=== PATIENT | male | born 1950 | race Caucasian/White ===

== ENCOUNTER → 2016-06-06 | Day surgery (SDC) | payer OTHER ==
[~2016-06-06] VITALS: Ht 182.9 cm; Wt 83.9 kg
[~2016-06-06] MED LIST: FUROSEMIDE80 M1 PO; LATANOPROST2.5 ML OPH
[2016-06-06 13:02] LABS: ABSOLUTE BASOPHIL COUNT 0 /CUMM (0.0-0.2); ABSOLUTE EOSINOPHIL COUNT 0.6 /CUMM (0.0-0.7); ABSOLUTE GRANULOCYTE CT 5.1 /CUMM (1.4-6.5); ABSOLUTE LYMPH COUNT 1.5 /CUMM (1.2-3.4); ABSOLUTE MONOCYTE COUNT 0.4 /CUMM (0.10-0.60); BASOPHIL % 0.6 % (0.0-2.0); EOSINOPHIL % 7.3 % (0-5); GRANULOCYTE % 67.4 % (42.2-75.2); HEMATOCRIT 41.3 % (42-52); MEAN CORPUSCULAR HGB 28.3 PG (27.0-31.0); MEAN CORPUSCULAR HGB CONC 33.5 G/DL (33.0-37.0); MEAN CORPUSCULAR VOLUME 84.5 FL (80.0-94.0); MEAN PLATELET VOLUME 7.8 FL (7.4-10.4); PLATELET COUNT 288 /CUMM (130-400); RBC DISTRIBUTION WIDTH 14.7 % (11.5-14.5); RED BLOOD CELL CT 4.89 /CUMM (4.70-6.10); WHITE BLOOD CELL COUNT 7.6 /CUMM (4.8-10.8)
--- NOTE | 2016-06-06 16:23 | RADIOLOGY REPORT ---
EXAMINATION: XR PORTABLE CHEST CLINICAL INFORMATION: Status post Port-A-Cath. COMPARISON: Chest radiography 05/09/2016. TECHNIQUE: Portable AP view of the chest was obtained. FINDINGS: Right subclavian Port-A-Cath is noted, with tip terminating over the lower SVC near the caval atrial junction. No pneumothorax. Left upper lung mass is redemonstrated. No mediastinal widening. No acute osseous abnormalities. IMPRESSION: Status post right subclavian Port-A-Cath placement. No pneumothorax. Left lung mass.
--- NOTE | 2016-06-06 17:04 | Operative Report ---
Operative/Inv Procedure Report Surgery Date: 06/06/16 Name of Procedure: Right subclavian Port-A-Cath Pre-Operative Diagnosis: Lung cancer Post-Operative Diagnosis: Same Estimated Blood Loss: scant Surgeon/Front Man: SEKOU TORO MD Anesthesia: local monitored anesthesi Implants: PowerPort Operative/Procedure Note Note: After consent is brought to the operating room laid supine. He was sedated and his right neck and chest prepped and draped. The skin in the upper lateral right chest was infiltrated with local anesthesia. Using ultrasound guidance, subclavian vein was percutaneous the accessed and the wire placed down the level of the right atrium. Incision was then made inferiorly through which the wire was brought out the pocket was made inferior to the incision. The catheter and port were placed in it and the catheter measured under fluoroscopy and trimmed to 22 cm. Under fluoroscopy the dilator was placed down into the superior vena cava. The cath was then placed into the sheath which was then peeled away. Final fluoroscopic images showed the catheter in the SVC/right atrial junction. The port was then flushed with concentrated heparin. Port was anchored to the deep subcutaneous tissues tissues with 0 Vicryl suture. The incision was then closed in layers of 3-0 and 4-0 sutures. Steri-Strips and sterile dressing applied. Sponge are correct
--- NOTE | 2016-06-07 14:13 | RADIOLOGY REPORT ---
EXAMINATION:\H\ \N\FL CHEST CLINICAL INFORMATION: Intraoperative fluoroscopic guidance for right Port-A-Cath placement. COMPARISON: Previous chest x-ray most recent obtained the same day. TECHNIQUE: Fluoroscopic guidance was provided for right subclavian Port-A-Cath placement. 9 images are submitted. FLUOROSCOPY TIME: 38 seconds KVP: 81 MAS: 2.3 FINDINGS: Fluoroscopic guidance was provided for right subclavian Port-A-Cath placement. IMPRESSION: Fluoroscopic guidance for right subclavian Port-A-Cath placement.
== END ==
LOC: STS 01:40
PROVIDERS: Surgery
DX: C34.92 Malignant neoplasm of unspecified part of left bronchus or lung (principal); E78.5 Hyperlipidemia, unspecified; I10 Essential (primary) hypertension; Z85.828 Personal history of other malignant neoplasm of skin
CPT/HCPCS: 36415; 93005; 93010; C1788; J0131; J0690; J1644; J2250

== ENCOUNTER → 2016-08-27 | Day surgery (SDC) | payer OTHER ==
[~2016-08-27] VITALS: Ht 182.9 cm; Wt 82.6 kg
--- NOTE | 2016-08-27 13:41 | Operative Report ---
Operative/Inv Procedure Report Surgery Date: 08/27/16 Name of Procedure: Bronchoscopy with biopsies Pre-Operative Diagnosis: Left upper lobe lung cancer Post-Operative Diagnosis: Same Estimated Blood Loss: none Surgeon/Power Generating Plant Operator: JONNY KHAN,LEXIS Mora JR Anesthesia: general endotracheal tube Operative/Procedure Note Note: After placement of monitoring lines and induction of general anesthesia a fiberoptic bronchoscopy was done through the endotracheal tube. The endobronchial anatomy on the right was normal. On the left side the distal left mainstem bronchus showed no evidence of endobronchial lesion. The left lower lobe bronchus was cleared through the segmental bronchi. The scope was advanced into the left upper lobe bronchus. The proximal left upper lobe bronchial area showed no evidence of mucosal tumor. In the segmental branch to the apex of the left upper lobe the endobronchial tumor could be seen. It was not touched. Biopsies were taken at the origin of the left upper lobe bronchus. If these biopsies are negative then a lobectomy would certainly be possible with negative margins. A second set of biopsies was taken from the distal left main bronchus. If these biopsies are positive then a pneumonectomy would certainly be necessary. There was good hemostasis. The patient tolerated procedure well and was brought to the recovery room awake and extubated in stable condition. CC: HAL KHAN,KAMLESH Jacobo; LISBET KHAN,TEODORA Jackson; CRISETLA KHAN,DANNY Adame
--- NOTE | 2016-08-27 14:45 | RADIOLOGY REPORT ---
EXAMINATION: XR PORTABLE CHEST CLINICAL INFORMATION: Status post bronchoscopy. COMPARISON: 06/06/2016. TECHNIQUE: Portable frontal view of the chest was obtained. FINDINGS: Right sided single lumen implanted port via a subclavian approach is new with its tip at the SVC right atrial junction. There has been a decrease in size of the previously identified left upper upper lobe mass currently measuring 6 cm maximal craniocaudal dimension previously 8.5 cm. There is a 1 cm nodule projecting over the ninth posterior left rib in the costophrenic angle possibly a nipple shadow. Lungs are otherwise clear bilaterally, no effusion, no infiltrate, no evidence of congestion. IMPRESSION: There is a new right-sided port, with decreasing size of the left upper lobe mass, left lower lung field nodule, question nipple shadow.
== END ==
LOC: STS 02:47
DX: C34.12 Malignant neoplasm of upper lobe, left bronchus or lung (principal); G20 Parkinson's disease; I10 Essential (primary) hypertension
CPT/HCPCS: 88305; J2250

== ENCOUNTER 2016-09-25 03:13 | Inpatient (IN) | payer OTHER ==
[~2016-09-25] VITALS: Ht 182.9 cm; Wt 83.0 kg
[~2016-09-25 03:13] MED LIST changes: +CARBIDOPA-LEVO1 EAC7 PO; +METOPROLOL TART25 M1 PO
--- NOTE | 2016-09-25 17:18 | Admission Core Measures ---
Acute Coronary Syndrome Inclusion Criteria ACS Diagnosis No Inpatient Core Measures LDL Reminder: If No, please order W/I first 24hr of stay Congestive Heart Failure Inclusion Criteria CHF Diagnosis No Cerebrovascular accident Inclusion Criteria CVA/TIA Diagnosis No Inpatient Core Measures Bedside Swallow Eval Reminder: If BSE failed, place ST order Antithrombotic Reminder: Order Antithrombotic Medication by end of day 2 Antithrombotic Reminder: Document Reason Antithrombotic Not ordered by end of day 2 AFIB/Flutter Reminder: If Present, add to problem list AFIB/Flutter Reminder: Order Anticoag Medication for pts with AFIB/Flutter Atherosclerosis Reminder: If Present, add to problem list LDL Reminder: If No, please order W/I first 24hr of stay PT Order Reminder: If No, please order Venous thromboembolism Inpatient Core Measures VTE Risk Factors: Age > 40, Cancer/chemo/oth therapy, Surgery [facility] V[facility] prophylaxis d/t No contraindications No VTE Pharm Prophylaxis d/t No contraindications Inclusion Criteria - Per Current guidelines, there needs to be overlap - treatment for the first 5 days of Warfarin therapy. - Parenteral Anticoagulation (IV or SC) needs to be - given along with Warfarin therapy. VTE Diagnosis No VTE Type NONE VTE Confirmed by (Test) NONE Problem List As ranked by this Provider includes Assessment & Plan 1. Mass of left lung HOME MEDS Home Med List Carbidopa/Levodopa (Carbidopa-Levodopa 25-100 Tab) 25 MG-100 MG TABLET 1 TAB PO TID PARKINSONS (Reported) Latanoprost 0.005 % DROPS 1 GTT OPH QPM GLAUCOMA (Reported) Metoprolol Tartrate 25 MG TABLET 0.5 TAB PO BID BP (Reported)
--- NOTE | 2016-09-25 17:42 | RADIOLOGY REPORT ---
EXAMINATION: XR PORTABLE CHEST CLINICAL INFORMATION: Status post left upper lobectomy. COMPARISON: 08/27/2016 TECHNIQUE: Portable frontal view of the chest was obtained. FINDINGS: Single lumen implanted catheter from a right-sided approach is again noted with its tip in the right atrium. There are 2 thoracostomy tubes identified in the left side without evidence of an underlying pneumothorax on this exam labeled 70 degree. There is a small amount of subcutaneous emphysema on the left near the axillary region. There is minimal discoid atelectasis at the bilateral lung bases. Lungs are otherwise clear. Heart size appears unchanged. IMPRESSION: Postoperative changes as noted. No pneumothorax is identified.
--- NOTE | 2016-09-25 18:00 | Admission Certification ---
Admission Certification Certification Statement - As attending physician, I certify that at the time of - admission, based on clinical presentation, severity of - symptoms, need for further diagnostic testing and - therapeutic interventions, and risk of adverse outcomes - without in-hospital treatment, in my clinical assessment, - this patient requires an acute hospital stay for a minimum - of two nights or longer. I have also considered psychsocial - factors such as support system, advanced age, financial - issues, cognitive issues, and failed out-patient treatments, - past re-admission history, safety of patient, and lack of - compliance as applicable. Specific rationale supporting this admission is: Major chest surgery requiring intensive care unit stay.
--- NOTE | 2016-09-25 18:05 | Operative Report ---
Operative/Inv Procedure Report Surgery Date: 09/25/16 Name of Procedure: Left upper lobectomy with mediastinal lymph node dissection Pre-Operative Diagnosis: Left upper lobe lung cancer Post-Operative Diagnosis: Same Estimated Blood Loss: 50ml to 100ml Surgeon/Heel Padder: JONNY KHAN,LEXIS Bach Anesthesia: general endotracheal tube Operative/Procedure Note Note: After placement of monitoring lines and induction of general anesthesia the double-lumen endotracheal tube was appropriately positioned fiberoptic bronchoscopy. The patient was placed in the right lateral decubitus position and his left chest was prepped and draped in a sterile fashion. A standard posterolateral thoracotomy incision was made and the chest was entered through the fifth intercostal space. The patient's chest was very rigid so portion of the sixth rib was resected and this allowed for better exposure. The fissure was essentially complete and the pulmonary artery was identified at the base of the fissure. By dissecting along the pulmonary artery we were able to identify all of the upper lobe branches very easily. There was a significant amount of reactive lymphadenopathy along the apical anterior branch. This branch was resected by placing a stapler across the arteries and the lymph nodes with successful firings. The lingular branches were then resected. Dissection continued allowed identification superior pulmonary vein which was resected with the Endo CAROLINE stapler. There was significant lymphatic attachments around the left upper lobe bronchus and these were divided as part of the specimen. The reticulating TA 55 stapler was then passed across the bronchus and fired. Intraoperative frozen section disclosed no evidence of cancer at the bronchial margin. The bronchial stump was tested under water to 30 mmHg pressure with no evidence of air leak. Lymph nodes removed from level V and level IX. Dissection was done and level VII and level but because of the fibrotic reactive changes from the radiation treatment we did not pursue lymph nodes in those areas for fear of major organ injury. Chest was drained with a straight and angled chest tube. Long-acting rib blocks were placed. The the pulmonary artery sprayed with sealant. There was good hemostasis. The ribs reapproximated pericostal suture and the lung was reinsufflated under direct vision. The incision was then closed anatomically with running Vicryl suture followed by running Vicryl subcuticular suture. The patient tolerated the procedure well and brought to recovery room awake and extubated in stable condition.
--- NOTE | 2016-09-25 18:08 | Cons- CRCU ---
ERIKDOREEN 09/25/16 1806: General Information and HPI Consulting Request Date of Consult: 09/25/16 Requested By: Dr. Hendrix Reason for Consult: ALVIN lobectomy Source of Information: old records Exam Limitations: clinical condition History of Present Illness: Mr. 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 We were asked to see the patient in the PACU after his ALVIN lobectomy w mediastinal node dissection. He will come up to the ICU after recovery. His previous workup and imaging included a chest x-ray dated 04/15/2016 showing a 9 cm left suprahilar mass with fullness in the left AP window. A CT scan of the chest dated genera 04/18/2016 showed a large left upper lobe mass extending from the left apical pleural space to the left suprahilar region. There were lymph nodes present that were 1 cm inside that looked solid and abnormal. His adrenal glands were normal. A PET/CT performed 06/10/2016 showed a large FDG avid mass with an SUV of 19.4 originating in the left lung apex extending to and encasing the left hilum and invading the left upper lobe bronchus. The tumor appeared to invade the mediastinum. He underwent a successful bronchoscopy with biopsies early this afternoon with negative margins and he subsequently underwent a ALVIN lobectomy. Intraoperative frozen section disclosed no evidence of cancer at the bronchial margin. 2 chest tubes were placed and a post-op CXR is pasted below and ruled out a PTX: CXR SERVICE DATE: 09/25/16-1718: Single lumen implanted catheter from a right-sided approach is again noted with its tip in the right atrium. There are 2 thoracostomy tubes identified in the left side without evidence of an underlying pneumothorax on this exam labeled 70 degree. There is a small amount of subcutaneous emphysema on the left near the axillary region. There is minimal discoid atelectasis at the bilateral lung bases. Lungs are otherwise clear. Heart size appears unchanged. At the time of the interview, he offered little complaint except for some pain at the site of the incision. He denies any chest pain, palpitations, lightheadedness or significant dyspnea. No n/v or abdominal pain. Allergies/Medications Allergies: Coded Allergies: cephalexin (? 09/24/16) nut - unspecified (GI UPSET 06/05/16) Home Med List: Carbidopa/Levodopa (Carbidopa-Levodopa 25-100 Tab) 25 MG-100 MG TABLET 1 TAB PO TID PARKINSONS (Reported) Latanoprost 0.005 % DROPS 1 GTT OPH QPM GLAUCOMA (Reported) BOTH EYES Metoprolol Tartrate 25 MG TABLET 0.5 TAB PO BID BP (Reported) Current Medications: Current Medications Sig/Jennifer Start time Last Medication Dose Route Stop Time Status Admin Acetaminophen 1,000 MG Q8P PRN 09/25 1899 UNVr IV Carbidopa/Levodopa 1 TAB TID 09/25 2199 UNVr PO Dextrose/Sodium 1,000 ML .[id number] 09/25 190 UNVr Chloride IV Heparin Sodium 5,000 UNIT Q8 09/26 599 UNVr (Porcine) SC Hydromorphone HCl 50 MG Q24H PRN 09/25 190 UNVr Sodium Chloride 45 ML IV Hydromorphone HCl 50 MG Q24H PRN 09/25 1730 AC Sodium Chloride 45 ML IV Latanoprost 1 GTT AT BEDTIME 09/25 2199 UNVr OPH Metoprolol Tartrate 12.5 MG BID 09/25 2199 UNVr PO Ondansetron HCl 4 MG Q6P PRN 09/25 1900 UNVr IV Pantoprazole Sodium 40 MG DAILY 09/26 1000 UNVr IV Vancomycin HCl 1,000 MG ONCE ONE 09/26 0400 UNir Sodium Chloride 250 ML IV 09/26 0459 Past History Surgical History Surgical History: basal cell ca on the back removed Psychosocial History Smoking Status: Unknown If Ever Smoked Exam & Diagnostic Data Last 24 Hrs of Vital Signs/I&O Current Medications Sig/Jennifer Start time Last Medication Dose Route Stop Time Status Admin Acetaminophen 1,000 MG Q8P PRN 09/25 1900 AC IV Carbidopa/Levodopa 1 TAB TID 09/25 2200 AC PO Dextrose/Sodium 1,000 ML .[id number] 09/25 1900 AC 09/25 Chloride IV 1927 Heparin Sodium 5,000 UNIT Q8 09/26 0600 AC (Porcine) SC Hydromorphone HCl 50 MG Q24H PRN 09/25 1900 CAN Sodium Chloride 45 ML IV Hydromorphone HCl 50 MG Q24H PRN 09/25 1730 AC 09/25 Sodium Chloride 45 ML IV 194 Latanoprost 1 GTT AT BEDTIME 09/25 2199 AC OPH Metoprolol Tartrate 12.5 MG BID 09/25 2199 AC PO Ondansetron HCl 4 MG Q6P PRN 09/25 1900 AC IV Pantoprazole Sodium 40 MG DAILY 09/26 1000 AC IV Vancomycin HCl 1,000 MG ONCE ONE 09/26 0400 AC Sodium Chloride 250 ML IV 09/26 0459 Physical Exam General Appearance: well developed/nourished, no apparent distress, awake, comfortable Head: atraumatic, normal appearance, active bleeding Eyes: Bilateral: PERRL, EOMI. Neck: normal inspection, supple Respiratory: no respiratory distress, decreased breath sounds, Chest wall non tender. Anterior and posterior chest tubes in place and draining blood., Chemotherapy port in the left upper chest wall. Cardiovascular: regular rate/rhythm, 2/6 systolic murmur Gastrointestinal: soft, non-tender, quiet BS Extremities: normal inspection, no edema Last 48 Hrs of Labs/Jesus: na Diagnostic Data CXR Results SERVICE DATE: 09/25/16 EXAM TYPE: RAD - XRY-PORTABLE CHEST XRAY EXAMINATION: XR PORTABLE CHEST CLINICAL INFORMATION: Status post left upper lobectomy. COMPARISON: 08/27/2016 TECHNIQUE: Portable frontal view of the chest was obtained. FINDINGS: Single lumen implanted catheter from a right-sided approach is again noted with its tip in the right atrium. There are 2 thoracostomy tubes identified in the left side without evidence of an underlying pneumothorax on this exam labeled 70 degree. There is a small amount of subcutaneous emphysema on the left near the axillary region. There is minimal discoid atelectasis at the bilateral lung bases. Lungs are otherwise clear. Heart size appears unchanged. IMPRESSION: Postoperative changes as noted. No pneumothorax is identified. Assessment/Plan Impression/Plan: Mr. Corrigan is a 66 year old gentleman with a PMH of basal cell carcinoma to the back, eczema, parkinson's disease and newly diagnosed left upper lobe non- small cell CA who was admitted to [facility] for treatment of a ALVIN non- small cell lung CA. He underwent a successful bronchoscopy with biopsies early this afternoon with negative margins and he subsequently underwent a ALVIN lobectomy. Intraoperative frozen section disclosed no evidence of cancer at the bronchial margin. 2 chest tubes were placed and a post-op CXR ruled out a PTX. Problem List ALVIN non-small cell lung Ca s/p ALVIN lobectomy HTN Parkinsons disease Recommendations: * Continue home meds for HTN, metoprolol 12.5 BID * Continue Carbidopa/Levadopa 25-100 daily for PD * Pain control, diet and dvt ppx per surgery * Chest tubes in place to suction, and management/removal will be dictated by surgery. Follow up CXR in the am. * follow up ALVIN and LN pathology/IHC FULL CODE Heart healthy diet Consult Acknowledgment - Thank you for your consult request. MAGALIE KHAN,Phil SANCHEZ 09/26/16 0854: Assessment/Plan Other Findings/Comments: I have personally seen and examined the patient, and agree with the resident's assessment and plan as detailed above. Briefly, the patient is a 66-year-old male with a past medical history significant for basal cell carcinoma of the back, eczema, Parkinson's disease, and left upper lobe non-small cell lung cancer. The patient underwent a left upper lobectomy with mediastinal lymph node dissection, without significant complications. The plan is to continue post thoracotomy respiratory protocol, continue home medications for hypertension and Parkinson's, continue with pain control, and follow up pathology. CT surgery will follow up with chest tube management. I discussed the plan of care with the housestaff and we'll continue to follow. Consult Acknowledgment - Thank you for your consult request.
[2016-09-25 20:00] VITALS: BP 130/80
--- NOTE | 2016-09-25 20:08 | PN- Thoracic Surgery ---
Subjective Subjective: The patient was seen this evening postoperatively. He complains of some mild incisional soreness for which the pain medicines to help him. He had no other complaints and denies any true chest pain, palpitations, or difficulty breathing. Objective Vital Signs and I&Os Intake & Output 09/25 1600 09/25 0800 09/25 0000 09/24 1600 09/24 0800 09/24 0000 Intake Total Output Total Balance Patient 180 lb Weight Vital signs: Blood pressure 130/80, pulse 79, blood temperature 97.2, O2 saturation 96% on 3 L via nasal cannula Postoperative chest x-ray showing no residual pneumothorax and 2 chest tubes in good position Physical Exam: Gen.: Alert and in no obvious distress Skin: Warm and dry Chest: Equal expansion, 2 chest tubes connected to Pleur-evac and suction with no air leak. Serosanguineous drainage in the collection chamber's. Surgical dressing is blood-tinged but otherwise intact. Cardiac: S1 and S2 regular Pulmonary: Bilateral breath sounds are equal and decreased at bases with transmitted chest tube noises in left chest Extremities: Bilateral lower extremities are warm without calf tenderness or significant edema. Assessment/Plan Assessment/Plan Assessment: 66-year-old male status post left upper lobectomy for cancer. Postoperatively the patient is progressing as expected, his pain is under adequate control, and he is oxygenating adequately on minimal O2 requirements Plan: Continue current pain regiment Postoperative prophylactic antibiotics Clear liquid diet tonight advance to heart healthy diet in the morning Maintain IV fluids Strict I's and O's Chest tubes to Pleur-evac and continuous wall suction Follow-up morning laboratory studies and chest x-ray GI and DVT prophylaxis subcutaneous heparin start tomorrow morning due to bleeding Total respiratory care per thoracotomy protocol Resume home medications Follow-up pulmonary critical care consultation recommendations Core Measures/Miscellaneous Aguirre Catheter Date In: 09/25/16 Still Needed? Yes Venous Thromboembolism VTE Risk Factors: Age > 40, Cancer/chemo/oth therapy, Surgery VTE Contraindications: No Contraindications VTE Diagnosis: No VTE Type: NONE VTE Confirmed by (Test): NONE Beta Yulia Is Beta Yulia a Home Med? Yes If Yes, Was This Ordered Today? Yes Antibiotics Is Patient on Antibiotics? Yes If Yes: prophylaxis
[2016-09-25 22:00] VITALS: BP 131/82
[2016-09-26] VITALS (12 sets, daily range): BP systolic 94–142; BP diastolic 49–88
--- NOTE | 2016-09-26 05:40 | PN- Thoracic Surgery ---
Subjective Subjective: The patient was seen this morning postoperatively day #1. He reports that his pain is under adequate control and he has no other complaints this morning. He denies any true chest pain, palpitations, or difficulty breathing. Objective Vital Signs and I&Os Vital Signs Date Time Temp Pulse Resp B/P B/P Pulse O2 O2 Flow FiO2 Mean Ox Delivery Rate 09/26 0310 96.3 71 16 124/70 09/26 0200 76 18 125/72 09/26 0104 99 Nasal 3.0L Cannula 09/26 0000 96.9 85 16 140/80 07/ 0000 96.9 85 16 140/80 98 Nasal 3.0L Cannula 09/26 0000 98 Nasal 2.0L Cannula 09/25 2216 72 18 135/76 09/25 2200 74 16 131/82 09/26 1999 97.2 78 16 130/80 09/26 1999 97.2 79 14 130/80 96 Nasal 3.0L Cannula 09/26 1999 98 Nasal 3.0L Cannula 09/25 1954 3.0L Intake & Output 09/26 0800 09/26 0000 09/25 1600 09/25 0800 09/25 0000 09/24 1600 Intake Total 295 Output Total 390 Balance -95 Intake, IV 195 Intake, Oral 100 Output, Chest 230 Tube Drainage Output, Urine 160 Patient 180 lb Weight Physical Exam: Gen.: Alert and in no obvious distress Skin: Warm and dry Cardiac: S1-S2 regular Chest: Equal expansion, left chest surgical dressing is slightly blood-tinged but otherwise intact. There are 2 chest tubes connected to the Pleur-evac and wall suction with serosanguineous drainage in the chambers. The anterior chest tube has a very small air leak reproducible with cough. Pulmonary: Bilateral breath sounds are equal and slightly decreased at bases. There are no wheezes, rales, or rhonchi. Extremities: Bilateral lower extremities are warm without calf tenderness. Assessment/Plan Assessment/Plan Assessment: 66-year-old male status post left upper lobectomy for cancer postoperative day #1. The patient is progressing as expected, he is oxygenating adequately with minimal O2 requirements, and his pain is reasonably controlled. Plan: Follow-up morning chest x-ray and labs If there is no pneumothorax will consider removing posterior chest tube today Hep-Lock IV fluids advance diet to a heart healthy diet Continue current pain regiment GI and DVT prophylaxis DC a line but keep Aguirre catheter for strict I's and O's Total respiratory care per postthoracotomy protocol Follow-up pulmonary and critical care consultation recommendations Core Measures/Miscellaneous Aguirre Catheter Date In: 09/25/16 Venous Thromboembolism VTE Risk Factors: Age > 40, Cancer/chemo/oth therapy, Surgery VTE Contraindications: No Contraindications VTE Diagnosis: No VTE Type: NONE VTE Confirmed by (Test): NONE Beta Yulia Is Beta Yulia a Home Med? Yes If Yes, Was This Ordered Today? Yes Antibiotics Is Patient on Antibiotics? No
[2016-09-26 05:52] LABS: ABSOLUTE BASOPHIL COUNT 0 /CUMM (0.0-0.2); ABSOLUTE EOSINOPHIL COUNT 0 /CUMM (0.0-0.7); ABSOLUTE GRANULOCYTE CT 10.8 /CUMM (1.4-6.5); ABSOLUTE LYMPH COUNT 0.3 /CUMM (1.2-3.4); BASOPHIL % 0 % (0.0-2.0); EOSINOPHIL % 0 % (0-5); GRANULOCYTE % 88.9 % (42.2-75.2); HEMATOCRIT 33.1 % (42-52); MEAN CORPUSCULAR HGB 30.9 PG (27.0-31.0); MEAN CORPUSCULAR HGB CONC 33.5 G/DL (33.0-37.0); MEAN CORPUSCULAR VOLUME 92.2 FL (80.0-94.0); MEAN PLATELET VOLUME 8.1 FL (7.4-10.4); PLATELET COUNT 149 /CUMM (130-400); RED BLOOD CELL CT 3.59 /CUMM (4.70-6.10); WHITE BLOOD CELL COUNT 12.2 /CUMM (4.8-10.8)
--- NOTE | 2016-09-26 07:21 | PN- Resident CRCU ---
Subjective HPI/CRCU Issues: Patient seen and examined. He is seen sitting upright in bed resting comfortably. He appears to be in no acute distress. At his bedside are two family members. He reports some moderate/severe chest pain/discomfort on the back left chest wall where the procedure took place yesterday. He also admits to chronic low back pain that is now worse. He otherwise feels well and denies any new subjective complaints. Additionally he denies any fever, chills, palpitations, shortness of breath, nausea, vomitng. Objective Vital Signs & I&O Last 8 Hrs of Vitals and I&O: Intake & Output 09/26 1600 Intake Total 1420 Output Total 60 Balance 1360 Intake, IV 750 Intake, Oral 670 Output, Chest 20 Tube Drainage Output, Urine 40 Exam General Appearance: well developed/nourished, no apparent distress, alert, awake , comfortable Other Physical Findings: General-well developed, well nourished man in no acute distress Neck-Supple, no JVD HEENT-NCAT, PERRL, EOMI, anicteric sclera Cardio/Chest-S1, S2 w/o m/g/r; RRR, left posterior chest wall with recent thoracotomy incision with overlying sterile surgical dressing and mild amount of dry blood, chest tube in place draining scant amount of serosanginous fluid without any surround erythema/drainage Lung-CTA bilaterally Abdomen-Soft, nontender, nondistended, bowel sounds intact Neuro-Awake and alert, CN II-XII grossly intact Ext-normal pulses, no cyanosis/clubbing/edema Current Medications: Current Medications Sig/Jennifer Start time Last Medication Dose Route Stop Time Status Admin Acetaminophen 1,000 MG Q8P PRN 09/25 1900 AC IV Albuterol Sulfate 3 ML Q4 09/25 2200 AC 09/26 INH 1656 Carbidopa/Levodopa 1 TAB TID 09/25 2200 AC 09/26 PO 1114 Dextrose/Sodium 1,000 ML .[id number] 09/25 1900 DC 09/25 Chloride IV 1927 Heparin Sodium 5,000 UNIT Q8 09/26 0600 AC 09/26 (Porcine) SC 1317 Hydromorphone HCl 50 MG Q24H PRN 09/25 1900 CAN Sodium Chloride 45 ML IV Hydromorphone HCl 50 MG Q24H PRN 09/25 1730 AC 09/25 Sodium Chloride 45 ML IV 1949 Latanoprost 1 GTT AT BEDTIME 09/25 2200 AC 09/25 OPH 2216 Metoprolol Tartrate 12.5 MG BID 09/25 2200 AC 09/25 PO 2216 Ondansetron HCl 4 MG Q6P PRN 09/25 1900 AC 09/26 IV 1317 Pantoprazole Sodium 40 MG DAILY 09/26 1000 AC 09/26 IV 1028 Sodium Chloride 500 ML BOLUS ONE 09/26 1315 DC 09/26 IV 09/26 1414 1315 Vancomycin HCl 1,000 MG ONCE ONE 09/26 0400 DC 09/26 Sodium Chloride 250 ML IV 09/26 0459 0429 Impression/Plan Impression/Problem List Impression: 66 year old man with significant past medical history of NSCLC, basal cell carcinoma, parkinson's disease seen admitted for left upper lobectomy. #Non-small cell lung Cancer s/p ALVIN Lobectomy #Parkinsons Disease #Hypertension Patient with history of newly diagnosed NSCLC admitted for ALVIN lobectomy. Patient underwent successful bronchoscopy with biopsies and negative margins with subsequent left upper lobectomy. Patient was transferred from the PACU to the ICU for closer observation and further management after the procedure. -ICU -Post-thoracotomy care per protocol -Chest tube care per CT surgery -Sinemet 25/10 1 TAB PO TID -Metoprolol 12.5mg PO BID -Zofran 4mg IV Q6H PRN Nausea -Continue Eye drops -Protonix 40mg IV Daily -Pain control / Diet / DVT per surgery -Follow up intraoperative pathologies Problem List: 1. Mass of left lung Pain Ratin Tomorrow's Labs & Rationales: Per surgery Plan DVT/Prophylaxis: mechanical
--- NOTE | 2016-09-26 08:13 | RADIOLOGY REPORT ---
EXAMINATION: XR PORTABLE CHEST CLINICAL INFORMATION: Follow-up status post left upper lobectomy. COMPARISON: 09/25/2016 TECHNIQUE: Portable frontal view of the chest was obtained. FINDINGS: Medication port of the right chest wall with central catheter terminating at the cavoatrial junction. Patient is status post recent left upper lobectomy. A left thoracostomy tube remains in similar position, its tip located in the upper third of the left hemithorax. Also, there is a thoracostomy tube at the base of the hemithorax. No evidence of pulmonary edema, pneumothorax or pleural effusion. Again noted is soft tissue emphysema in the axillary region. Linear opacity of discoid atelectasis in the right lower lung zone. Cardiac silhouette is normal in size. Thoracotomy defect of posterior sixth and seventh ribs. IMPRESSION: No evidence of pneumothorax after recent left upper lobectomy. Thoracostomy tubes remain in similar position compared to the prior exam.
[2016-09-27] VITALS (9 sets, daily range): BP systolic 96–126; BP diastolic 50–80
--- NOTE | 2016-09-27 05:48 | PN- Thoracic Surgery ---
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 pain at chest tube site posterior chest tube pulled yesterday anterior placed to water seal Objective Vital Signs and I&Os Vital Signs Date Time Temp Pulse Resp B/P B/P Pulse O2 O2 Flow FiO2 Mean Ox Delivery Rate 09/27 0400 95 Room Air / 0200 97.3 87 10 97/50 07/08 0124 98 Room Air 07/ 0000 95 Room Air 07/08 0000 97.3 86 12 110/70 95 Room Air 07/ 2216 98.9 84 22 98/74 07/ 2200 99.2 84 22 107/64 07 2038 99 Room Air 07/ 2000 96 07/07 1800 98.9 86 20 108/64 07/07 1600 98.0 81 24 128/88 97 Room Air 07/ 1600 96 07/07 1400 76 16 94/49 07/07 1200 98.2 74 16 104/62 07/07 1200 98 Room Air 07/07 1114 68 92/54 07/07 1000 65 12 96/60 07/07 0844 97 Room Air 07/07 0800 98.9 82 20 100/70 07/07 0800 98.9 82 20 100/70 96 Room Air 07/07 0800 98 Room Air 07/07 0600 75 18 101/60 Intake & Output 07/08 0800 07/08 0000 07/07 1600 07/07 0800 07/07 0000 /06 1600 Intake Total 560 1420 802 295 Output Total 700 60 447 390 Balance -140 1360 355 -95 Intake, IV 240 750 752 195 Intake, Oral 320 670 50 100 Output, Chest 20 97 230 Tube Drainage Output, Urine 700 40 350 160 Patient 184 lb Weight Weight Bed scale Measurement Method Physical Exam: cv: rrr lungs: clear abd: soft, +bs ext: warm, cms intact chest tube: questionable small air leak snaguinous drainage in pleur evac Assessment/Plan Assessment/Plan stable plan cont current plan f/u am labs and cxr Core Measures/Miscellaneous Aguirre Catheter Date In: 09/25/16 Venous Thromboembolism VTE Risk Factors: Age > 40, Cancer/chemo/oth therapy, Surgery VTE Contraindications: No Contraindications VTE Diagnosis: No VTE Type: NONE VTE Confirmed by (Test): NONE Beta Yulia Is Beta Yulia a Home Med? Yes If Yes, Was This Ordered Today? Yes Antibiotics Is Patient on Antibiotics? No
--- NOTE | 2016-09-27 08:08 | RADIOLOGY REPORT ---
EXAMINATION: XR PORTABLE CHEST CLINICAL INFORMATION: Evaluate for pneumothorax. Patient on waterseal. COMPARISON: Previous chest x-ray most recent from yesterday TECHNIQUE: Portable frontal view of the chest was obtained. FINDINGS: The cardiac and mediastinal contours are stable. Left chest tube is unchanged in position. There is no pneumothorax. The lungs are clear. There is left lateral pleural thickening. There is no pleural effusion. There is a right sided port with tip projecting over the SVC. There is a small amount of left chest wall subcutaneous emphysema. This is similar to yesterday's exam. IMPRESSION: No pneumothorax.
[2016-09-27 08:19] LABS: ABSOLUTE BASOPHIL COUNT 0 /CUMM (0.0-0.2); ABSOLUTE EOSINOPHIL COUNT 0 /CUMM (0.0-0.7); ABSOLUTE LYMPH COUNT 0.5 /CUMM (1.2-3.4); ABSOLUTE MONOCYTE COUNT 0.7 /CUMM (0.10-0.60); BASOPHIL % 0 % (0.0-2.0); EOSINOPHIL % 0.2 % (0-5); GRANULOCYTE % 86.2 % (42.2-75.2); HEMATOCRIT 30.7 % (42-52); MEAN CORPUSCULAR HGB 31.2 PG (27.0-31.0); MEAN CORPUSCULAR HGB CONC 33.2 G/DL (33.0-37.0); MEAN CORPUSCULAR VOLUME 93.9 FL (80.0-94.0); MEAN PLATELET VOLUME 8.1 FL (7.4-10.4); RED BLOOD CELL CT 3.27 /CUMM (4.70-6.10); WHITE BLOOD CELL COUNT 9.3 /CUMM (4.8-10.8)
[2016-09-27 08:57] LABS: PLATELET COUNT 118 /CUMM (130-400)
--- NOTE | 2016-09-27 10:04 | PN- CRCU ---
Subjective HPI/Critical Care Issues: The patient is awake and alert. He reports feeling well and he denies any complaints. There were no overnight events. Objective Current Medications: Current Medications Sig/Jennifer Start time Last Medication Dose Route Stop Time Status Admin Acetaminophen 1,000 MG Q8P PRN 09/25 1900 AC IV Albuterol Sulfate 3 ML Q4 09/25 2200 AC 09/27 INH 0602 Carbidopa/Levodopa 1 TAB TID 09/25 2200 AC 09/26 PO 2223 Docusate Sodium 100 MG BID 09/27 1000 AC PO Heparin Sodium 5,000 UNIT Q8 09/26 0600 AC 09/26 (Porcine) SC 2200 Hydromorphone HCl 50 MG Q24H PRN 09/25 1730 AC 09/25 Sodium Chloride 45 ML IV 1949 Latanoprost 1 GTT AT BEDTIME 09/25 220 AC 09/26 OPH 2222 Metoprolol Tartrate 12.5 MG BID 09/25 2200 AC 09/25 PO 2216 Ondansetron HCl 4 MG Q6P PRN 09/25 1900 AC 09/26 IV 1317 Pantoprazole Sodium 40 MG DAILY 09/26 1000 AC 09/26 IV 1028 Polyethylene Glycol 17 GM DAILY PRN 09/27 0830 AC PO Sodium Chloride 500 ML BOLUS ONE 09/26 1315 DC 09/26 IV 09/26 1414 1315 Vital Signs & I&O Last 24 Hrs of Vitals and I&O: Vital Signs Date Time Temp Pulse Resp B/P B/P Pulse O2 O2 Flow FiO2 Mean Ox Delivery Rate 09/28 799 98.8 84 18 120/70 /08 0600 93 14 114/69 07/08 0400 95 Room Air 07/08 0200 97.3 87 10 97/50 07/08 0124 98 Room Air 07/08 0000 95 Room Air /08 0000 97.3 86 12 110/70 95 Room Air /07 2216 98.9 84 22 98/74 07/07 2200 99.2 84 22 107/64 07/07 2038 99 Room Air 07/07 2000 96 07/07 1800 98.9 86 20 108/64 07/07 1600 98.0 81 24 128/88 97 Room Air 07/07 1600 96 /07 1400 76 16 94/49 07/07 1200 98.2 74 16 104/62 07/07 1200 98 Room Air 07/07 1114 68 92/54 09/26 1000 65 12 96/60 Intake & Output 09/27 1600 09/27 0800 09/27 0000 Intake Total 100 560 Output Total 500 700 Balance -400 -140 Intake, IV 240 Intake, Oral 100 320 Output, Urine 500 700 Patient 183 lb Weight Exam General Appearance: no apparent distress, alert, awake, comfortable Other Physical Findings: Neck-Supple, no JVD HEENT-NCAT, PERRL, EOMI, anicteric sclera Cardio/Chest-S1, S2 w/o m/g/r; RRR, left posterior chest wall with recent thoracotomy incision with overlying sterile surgical dressing and mild amount of dry blood, chest tube in place draining scant amount of serosanginous fluid without any surround erythema/drainage Lung-CTA bilaterally Abdomen-Soft, nontender, nondistended, bowel sounds intact Neuro-Awake and alert, CN II-XII grossly intact Ext-normal pulses, no cyanosis/clubbing/edema Results Last 24 Hrs of Lab Results: Laboratory Tests 09/27/16 0645: Anion Gap 10, Estimated GFR > 60, Glucose 86, Calcium 8.1 L, Phosphorus 2.4 L, Magnesium 1.9, Total Bilirubin 1.1, AST 38, ALT 15 L, Albumin 3.6, CBC w Diff NO MAN DIFF REQ, RBC 3.27 L, MCV 93.9, MCH 31.2 H, RDW 14.0, MPV 8.1, Gran % 86.2 H, Lymphocytes % 5.6 L, Monocytes % 8.0, Eosinophils % 0.2, Basophils % 0 L, Absolute Granulocytes 8.0 H, Absolute Lymphocytes 0.5 L, Absolute Monocytes 0.7 H, Absolute Eosinophils 0, Absolute Basophils 0, PUBS MCHC 33.2 Impression/Plan Impression/Plan Impression/Plan: The patient has a history of newly diagnosed NSCLC admitted for ALVIN lobectomy. Patient underwent successful bronchoscopy with biopsies and negative margins with subsequent left upper lobectomy. Recommendations: * Chest tube management as per CT surgery. * Continue postthoracotomy care as per protocol. * Continue nebs/TRC. * Out of bed to chair. Increase activity. * Physical therapy evaluation. * Continue Sinemet for parkinsonism. * Continue metoprolol. * Continue with pain control. * Follow-up pathology. * DVT prophylaxis at all times. * Continue all supportive care.
--- NOTE | 2016-09-27 12:47 | PN- Thoracic Surgery ---
Subjective Subjective: Left chest tube removed. CXR reviewed, no PTX. approx 10cc out since 7am. DW Dr. Hendrix, no AL. Pt tolerated well. Occlusive dressing immediately applied. Thoracotomy dressing changed- steris stained with old blood, otherwise intact. Repeat CXR in 3hrs. Objective Vital Signs and I&Os Vital Signs Date Time Temp Pulse Resp B/P B/P Pulse O2 O2 Flow FiO2 Mean Ox Delivery Rate 09/27 1048 103 122/74 07/08 0800 98.8 84 18 120/70 07/08 0800 98.8 88 18 120/70 98 Room Air 07/08 0800 98 Room Air 07/08 0600 93 14 114/69 07/08 0400 95 Room Air 07/08 0200 97.3 87 10 97/50 07/08 0124 98 Room Air 07/08 0000 95 Room Air 07/08 0000 97.3 86 12 110/70 95 Room Air 07/07 2216 98.9 84 22 98/74 07/07 2200 99.2 84 22 107/64 /07 2038 99 Room Air / 2000 96 /07 1800 98.9 86 20 108/64 07/07 1600 98.0 81 24 128/88 97 Room Air /07 1600 96 /07 1400 76 16 94/49 Intake & Output 09/27 1600 /08 0800 /08 0000 /07 1600 / 0800 / 0000 Intake Total 110 289 4909 802 295 Output Total 500 700 60 447 390 Balance -400 -140 1360 355 -95 Intake, IV 240 750 752 195 Intake, Oral 100 320 670 50 100 Output, Chest 20 97 230 Tube Drainage Output, Urine 500 700 40 350 160 Patient 183 lb 184 lb Weight Weight Bed scale Measurement Method Assessment/Plan Assessment/Plan See Subjective Core Measures/Miscellaneous Aguirre Catheter Date In: 09/25/16 Venous Thromboembolism VTE Risk Factors: Age > 40, Cancer/chemo/oth therapy, Surgery VTE Contraindications: No Contraindications VTE Diagnosis: No VTE Type: NONE VTE Confirmed by (Test): NONE Beta Yulia Is Beta Yulia a Home Med? Yes If Yes, Was This Ordered Today? Yes Antibiotics Is Patient on Antibiotics? No
--- NOTE | 2016-09-27 14:54 | PN- CRCU ---
Subjective HPI/Critical Care Issues: I saw the pt at bedside today. pateint is comfortable at rest, afebrile, not dyspnec, tachypneic. having oral feed today Objective Current Medications: Current Medications Sig/Jennifer Start time Last Medication Dose Route Stop Time Status Admin Acetaminophen 1,000 MG Q8P PRN 09/25 1900 DC IV Albuterol Sulfate 3 ML Q4 09/25 2200 AC 09/27 INH 1406 Carbidopa/Levodopa 1 TAB TID 09/25 2200 AC 09/27 PO 1048 Docusate Sodium 100 MG BID 09/27 1000 AC 09/27 PO 1048 Heparin Sodium 5,000 UNIT Q8 09/26 0600 AC 09/26 (Porcine) SC 2200 Hydromorphone HCl 50 MG Q24H PRN 09/25 1730 DC 09/25 Sodium Chloride 45 ML IV 1949 Latanoprost 1 GTT AT BEDTIME 09/25 2200 AC 09/26 OPH 2222 Magnesium Oxide 400 MG ONE ONE 09/27 1015 DC 09/27 PO 09/27 1016 1048 Metoprolol Tartrate 12.5 MG BID 09/25 2200 AC 09/27 PO 1048 Ondansetron HCl 4 MG Q6P PRN 09/25 1900 AC 09/26 IV 1317 Oxycodone/ 1 TAB Q4P PRN 09/27 1315 AC Acetaminophen PO Oxycodone/ 2 TAB Q4P PRN 09/27 1315 AC Acetaminophen PO Pantoprazole Sodium 40 MG DAILY 09/26 1000 AC 09/27 IV 1048 Polyethylene Glycol 17 GM DAILY PRN 09/27 0830 AC PO Potassium Chloride 40 MEQ ONCE ONE 09/27 1015 DC 09/27 PO 09/27 1016 1046 Vital Signs & I&O Last 24 Hrs of Vitals and I&O: Vital Signs Date Time Temp Pulse Resp B/P B/P Pulse O2 O2 Flow FiO2 Mean Ox Delivery Rate 09/27 1327 82 20 114/63 07/08 1200 98.8 78 18 96/58 07/ 1200 98 Room Air / 1048 103 122/74 / 0800 98.8 84 18 120/70 07/08 0800 98.8 88 18 120/70 98 Room Air / 0800 98 Room Air / 0600 93 14 114/69 07/08 0400 95 Room Air / 0200 97.3 87 10 97/50 07/08 0124 98 Room Air 07/ 0000 95 Room Air 07/ 0000 97.3 86 12 110/70 95 Room Air 09/26 2216 98.9 84 22 98/74 07/07 2200 99.2 84 22 107/64 07/07 2038 99 Room Air / 2000 96 07/07 1800 98.9 86 20 108/64 07/07 1600 98.0 81 24 128/88 97 Room Air 09/26 1600 96 Intake & Output 09/27 1600 07/08 0800 07/ 0000 Intake Total 950 100 560 Output Total 1660 500 700 Balance -710 -400 -140 Intake, IV 200 240 Intake, Oral 750 100 320 Output, Chest 10 Tube Drainage Output, Urine 1650 500 700 Patient 183 lb Weight Exam General Appearance: well developed/nourished, no apparent distress, alert, awake Head: normal appearance Neck: normal inspection, supple, full range of motion Respiratory: lungs clear Cardiovascular: regular rate/rhythm Abdomen: normal bowel sounds, soft Extremities: normal inspection, normal capillary refill Skin: intact, normal color Results Last 24 Hrs of Lab Results: Laboratory Tests 09/27/16 0645: Anion Gap 10, Estimated GFR > 60, Glucose 86, Calcium 8.1 L, Phosphorus 2.4 L, Magnesium 1.9, Total Bilirubin 1.1, AST 38, ALT 15 L, Albumin 3.6, CBC w Diff NO MAN DIFF REQ, RBC 3.27 L, MCV 93.9, MCH 31.2 H, RDW 14.0, MPV 8.1, Gran % 86.2 H, Lymphocytes % 5.6 L, Monocytes % 8.0, Eosinophils % 0.2, Basophils % 0 L, Absolute Granulocytes 8.0 H, Absolute Lymphocytes 0.5 L, Absolute Monocytes 0.7 H, Absolute Eosinophils 0, Absolute Basophils 0, PUBS MCHC 33.2 Diagnostic Data CXR Findings: 09/27/16 the cardiac and mediastinal contours are stable. Left chest tube is unchanged in position. There is no pneumothorax. The lungs are clear. There is left lateral pleural thickening. There is no pleural effusion. There is a right sided port with tip projecting over the SVC. There is a small amount of left chest wall subcutaneous emphysema. This is similar to yesterday's exam. Impression/Plan Impression/Plan Impression/Plan: Mr. Corrigan is a 66 year old gentleman with a PMH of basal cell carcinoma to the back, eczema, parkinson's disease and newly diagnosed left upper lobe non- small cell CA,underwent a ALVIN lobectomy.post operative day 1 Plan: continue pain mgt continue antihypertensives dvt prophylaxis continue sinemet Code Status: Full Code
--- NOTE | 2016-09-27 16:55 | RADIOLOGY REPORT ---
EXAMINATION: XR PORTABLE CHEST CLINICAL INFORMATION: Pneumothorax COMPARISON: 09/27/2016. TECHNIQUE: Portable frontal view of the chest was obtained. FINDINGS: Right-sided Port-A-Cath remains in place. No pneumothorax is measurable. Volume loss left hemithorax again noted. Biapical pleural scarring or thickening. Heart and mediastinum remains within normal limits. IMPRESSION: No pneumothorax.
[2016-09-28] VITALS: BP 110/50
[2016-09-28 02:25] VITALS: BP 120/78
--- NOTE | 2016-09-28 07:54 | PN- Thoracic Surgery ---
Subjective Subjective: CHEST TUBE REMOVED YESTERDAY TRANSFERRED OUT OF ICU CONFUSED LAST NIGHT MENTATION IMPROVED THIS AM AWAKE ALERT NO PAIN COMPLAINTS NOW Objective Vital Signs and I&Os Vital Signs Date Time Temp Pulse Resp B/P B/P Pulse O2 O2 Flow FiO2 Mean Ox Delivery Rate 09/28 0225 98.3 68 16 120/78 98 07/09 0000 Room Air 07/08 2220 120/80 07/08 2216 98.6 84 16 120/80 95 Room Air 07/08 1817 100 Room Air 07/08 1740 98.0 82 18 118/70 100 Room Air 07/08 1600 98.4 84 20 126/74 98 Room Air 07/08 1600 98 Room Air 07/08 1539 98 Room Air Room Air 07/08 1327 82 20 114/63 07/08 1200 98.8 78 18 96/58 07/08 1200 98 Room Air 07/08 1048 103 122/74 07/08 0800 98.8 84 18 120/70 07/08 0800 98.8 88 18 120/70 98 Room Air 07/08 0800 98 Room Air Intake & Output / 0800 07/09 0000 07/08 1600 07/08 0800 07/08 0000 /07 1600 Intake Total 100 490 950 030 744 1128 Output Total 700 1660 500 700 60 Balance 100 -210 -710 -400 -140 1360 Intake, IV 100 200 240 750 Intake, Oral 490 750 100 320 670 Output, Chest 10 20 Tube Drainage Output, Urine 700 1650 500 700 40 Patient 183 lb Weight Physical Exam: CV: RRR LUNGS: CLEAR ABD: SOFT +BS EXT: WARM DISTAL CMS INTACT Assessment/Plan Assessment/Plan OOB TODAY LIMIT NARCS PLAN FOR HOME D/C IN AM Core Measures/Miscellaneous Aguirre Catheter Date In: 09/25/16 Venous Thromboembolism VTE Risk Factors: Age > 40, Cancer/chemo/oth therapy, Surgery VTE Contraindications: No Contraindications VTE Diagnosis: No VTE Type: NONE VTE Confirmed by (Test): NONE Beta Yulia Is Beta Yulia a Home Med? Yes If Yes, Was This Ordered Today? Yes Antibiotics Is Patient on Antibiotics? No
[2016-09-28 08:00] VITALS: BP 138/78
[2016-09-28 11:39] VITALS: BP 148/80
[2016-09-28 14:14] VITALS: BP 128/80
[2016-09-28 22:42] VITALS: BP 136/86
[2016-09-29 05:45] VITALS: BP 132/82
--- NOTE | 2016-09-29 09:06 | PN- Thoracic Surgery ---
Subjective Subjective: Feeling well. Denies SOB, CP. c/o difficulty swallowing since OR, "food gets stuck", Pain worse w movement, but lessened w pain meds. +OOB w PT. + spontaneous voids. No BM, asking for meds. Objective Vital Signs and I&Os Vital Signs Date Time Temp Pulse Resp B/P B/P Pulse O2 O2 Flow FiO2 Mean Ox Delivery Rate 09/30 0742 Room Air Room Air 09/29 0545 98.1 71 16 132/82 97 09/28 2242 98.4 73 20 136/86 93 Room Air 09/28 2218 136/86 09/28 1600 Room Air 09/28 1414 98.0 71 20 128/80 96 Room Air 09/28 1236 98 Room Air Room Air 09/28 1139 98.6 84 18 148/80 94 Room Air Intake & Output 09/29 1600 09/29 0800 09/29 0000 09/28 1600 09/28 0800 07/ 0000 Intake Total 10 620 600 100 490 Output Total 600 700 Balance 10 620 0 100 -210 Intake, IV 10 100 Intake, Oral 620 600 490 Output, Urine 600 700 Physical Exam: Intake & Output 09/29 1600 09/29 0800 07/10 0000 / 1600 09/28 0800 07/ 0000 Intake Total 10 620 600 100 490 Output Total 600 700 Balance 10 620 0 100 -210 Intake, IV 10 100 Intake, Oral 620 600 490 Output, Urine 600 700 Physical Exam: GEN: NAD CARD: s1s2 RRR PULM: decreased L base, otherwise clear. INCISION: dressing w dried serosang, CT sites clean and dry without active drainage, throacotomy w serous drainage on dressing, steristrips stained, incision cdi. incisions redressed EXT: calves soft nt bl Current Medications: Current Medications Sig/Jennifer Start time Last Medication Dose Route Stop Time Status Admin Acetaminophen 1,000 MG Q6P PRN 09/28 0430 DC 09/28 N/A 1 UNIT IV 2240 Albuterol Sulfate 3 ML Q4P PRN 09/29 0845 AC INH Albuterol Sulfate 3 ML EVERY 4 HRS/AWAKE 09/28 1999 DC 09/28 INH 1233 Bisacodyl 10 MG ONCE ONE 09/30 0715 DC IL 09/29 0816 Carbidopa/Levodopa 1 TAB TID 09/25 220 AC 09/28 PO 2217 Docusate Sodium 100 MG BID 09/27 1000 AC 09/28 PO 2218 Heparin Sodium 5,000 UNIT Q8 09/26 0600 AC 09/29 (Porcine) SC 0524 Latanoprost 1 GTT AT BEDTIME 09/25 2200 AC 09/28 OPH 2218 Metoprolol Tartrate 12.5 MG BID 09/25 2200 AC 09/28 PO 2218 Ondansetron HCl 4 MG .STK-MED ONE 09/28 1542 DC IM 09/28 1543 Ondansetron HCl 4 MG Q6P PRN 09/25 1900 AC 09/28 IV 1544 Oxycodone HCl 5 MG Q4 HRS NEEDED PRN 09/28 0430 DC 09/29 PO 0524 Oxycodone/ 2 TAB Q4P PRN 09/29 0815 AC Acetaminophen PO Oxycodone/ 1 TAB Q4P PRN 09/29 0815 AC Acetaminophen PO Pantoprazole Sodium 40 MG DAILY 09/26 1000 AC 09/28 IV 1134 Polyethylene Glycol 17 GM DAILY PRN 09/27 0830 AC PO Assessment/Plan Assessment/Plan A: POD4 sp L thoracotomy, L upper lobectomy, CT out over weekend, on RA, with difficulty swallowing likely related to intubation, awaiting BM, stable. P: PT rec. STR, DC planning swallow eval dulcolax supp cont diet, po pain meds will dw attending Core Measures/Miscellaneous Aguirre Catheter Date In: 09/25/16 Venous Thromboembolism VTE Risk Factors: Age > 40, Cancer/chemo/oth therapy, Surgery VTE Contraindications: No Contraindications VTE Diagnosis: No VTE Type: NONE VTE Confirmed by (Test): NONE Beta Yulia Is Beta Yulia a Home Med? Yes If Yes, Was This Ordered Today? Yes Antibiotics Is Patient on Antibiotics? No
[2016-09-29] MEDS ORDERED: PERCOCET 5-3251 EACH PO (09:48)
[2016-09-29] MEDS ORDERED: DOCUSATE SODIU100 M3 PO (09:48)
[2016-09-29] MEDS ORDERED: MIRALAX119 GM PO (09:48)
--- NOTE | 2016-09-29 09:53 | Patient Discharge Instructions ---
Discharge Instructions General Discharge Information You were seen/treated for: Left upper lobe lung cancer You had these procedures: Left upper lobectomy with mediastinal lymph node dissection Watch for these problems: fever>101, redness/drainage from incisions, worsening pain, worsening short of breath Do not soak the wound: Yes No bath, but you may shower: Yes Other wound care: Clean dry dressing daily. Steristrips will fall off eventually. Diet Continue normal diet: Yes Activity Activity Self Limited: Yes Other activity limits: activity as tolerated. Use PT and assistive devices as needed. Acute Coronary Syndrome Inclusion Criteria At DC or during hospital stay patient has or had the following: ACS DIAGNOSIS No Discharge Core Measures Meds if any: Prescribed or Continued at Discharge Meds if any: NOT Prescribed or Continued at Discharge Congestive Heart Failure Inclusion Criteria At DC or during hospital stay patient has or had the following: CHF DIAGNOSIS No Discharge Core Measures Meds if any: Prescribed or Continued at Discharge Meds if any: NOT Prescribed or Continued at Discharge Cerebrovascular accident Inclusion Criteria At DC or during hospital stay patient has or had the following: CVA/TIA Diagnosis No Discharge Core Measures Meds if any: Prescribed or Continued at Discharge Meds if any: NOT Prescribed or Continued at Discharge Venous thromboembolism Inclusion Criteria VTE Diagnosis No VTE Type NONE VTE Confirmed by (Test) NONE Discharge Core Measures - Per Current guidelines, there needs to be overlap - treatment for the first 5 days of Warfarin therapy. - If discharged on Warfarin prior to 5 days of - overlap therapy, the patient will need to be - assessed for post discharge needs including - *Post discharge parental anticoagulation - *Warfarin and/or parental anticoagulation education - *Follow up date to check INR post discharge At least 5 days overlap therapy as Inpatient No Meds if any: Prescribed or Continued at Discharge Note: Overlap Therapy is Warfarin and Anticoagulant Meds if any: NOT Prescribed or Continued at Discharge
[2016-09-29 14:47] VITALS: BP 132/78
[2016-09-29 23:38] VITALS: BP 134/80
[2016-09-30 07:10] VITALS: BP 136/80
--- NOTE | 2016-09-30 07:10 | PN- Thoracic Surgery ---
Subjective Subjective: Reports +bm yesterday. He feels like he would benefit from short term rehab. Seen and evaluated by PT yesterday, with recommendations for home PT. Pain currently controlled with percocet. Objective Vital Signs and I&Os Vital Signs Date Time Temp Pulse Resp B/P B/P Pulse O2 O2 Flow FiO2 Mean Ox Delivery Rate 09/30 0000 Room Air 09/29 2338 98.1 77 18 134/80 96 09/29 2137 66 132/78 09/29 1900 96 Room Air 09/29 1447 98.0 69 18 132/78 97 Room Air 09/29 0959 70 132/80 09/29 0842 99 Room Air Room Air 09/29 0800 97 Room Air Intake & Output 09/30 0809/30 0000 09/29 1600 09/29 0809/29 0000 09/28 1600 Intake Total 10 620 600 Output Total 300 300 600 Balance -300 -300 10 620 0 Intake, IV 10 Intake, Oral 620 600 Number 1 Bowel Movements Output, Urine 300 300 600 Physical Exam: General - alert & oriented x 3. comfortable. no acute distress. Lungs - clear bilaterally. no w/r/r. Cardiac - s1s2. chest wall dressings c/d/i. Abdomen - soft. nontender. Extremities - warm bilaterally. no c/c/e. calves soft and nontender b/l. Current Medications: Current Medications Sig/Jennifer Start time Last Medication Dose Route Stop Time Status Admin Acetaminophen 1,000 MG Q6P PRN 09/28 0430 DC 09/28 N/A 1 UNIT IV 2240 Albuterol Sulfate 3 ML Q4P PRN 09/29 0845 AC INH Albuterol Sulfate 3 ML EVERY 4 HRS/AWAKE 09/28 1999 DC 09/28 INH 1233 Bisacodyl 10 MG ONCE ONE 09/29 0815 DC 09/29 TX 09/29 0816 0959 Carbidopa/Levodopa 1 TAB TID 09/250 AC 09/29 PO 213 Docusate Sodium 100 MG BID 09/27 1000 AC 09/29 PO 213 Heparin Sodium 5,000 UNIT Q8 09/26 0600 AC 09/30 (Porcine) SC 0610 Latanoprost 1 GTT AT BEDTIME 09/25 2199 AC 09/29 OPH 2151 Metoprolol Tartrate 12.5 MG BID 09/25 2199 AC 09/29 PO 2137 Ondansetron HCl 4 MG Q6P PRN 09/25 1900 AC 09/28 IV 1544 Oxycodone HCl 5 MG Q4 HRS NEEDED PRN 09/28 0430 DC 09/29 PO 0524 Oxycodone/ 2 TAB Q4P PRN 09/29 0815 AC 09/29 Acetaminophen PO 2144 Oxycodone/ 1 TAB Q4P PRN 09/29 0815 AC Acetaminophen PO Pantoprazole Sodium 40 MG DAILY 09/26 1000 AC 09/29 IV 0959 Patient Medication 1 ED .STK-MED ONE 09/29 1401 DC Teaching ED 09/29 1402 Polyethylene Glycol 17 GM DAILY PRN 09/27 0830 AC PO Assessment/Plan Assessment/Plan This 66 year old white male is POD#5 s/p L thoracotomy, L upper lobectomy pain controlled with percocet 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 Yes If Yes, Was This Ordered Today? Yes Antibiotics Is Patient on Antibiotics? No
--- NOTE | 2016-09-30 09:46 | Surgical Discharge Summary ---
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 Home Who Do You Live With? Patient/Self What is Your Primary Language? Nepali Review of Systems: See admitting H&P Hospital Course Course Attending Physician: JONNY KHAN,LEXIS Mora JR Primary Care Physician: TEODORA FRAUSTO MD Hospital Course: The patient was admitted on 09/25/2016. Later that day he was brought to the operating theater and underwent a left upper lobectomy. Postoperative the patient slowly progressed and his pain was under adequate control. His chest tubes were removed and his chest x-ray was adequate showing no pneumothorax. He was oxygenating adequately on room air. The patient worked with physical therapy and he was discharged with an uneventful hospital course Complications: None Allergies: Coded Allergies: cephalexin (? 09/24/16) nut - unspecified (GI UPSET 06/05/16) Significant Procedures: Left upper lobectomy Disposition Summary Disposition Principal Diagnosis: Left lung mass Additional Diagnosis: None Discharge Disposition: SNF Discharge Instructions General Discharge Information Code Status: Full Code Patient's Diet: Regular diet Patient's Activity: Self-limited Do not lift more than 10 pounds Follow-Up Instructions/Appts: Provided Call the Office to be seen in approximately 2 weeks Medications at Discharge Discharge Medications: Continue taking these medications: Latanoprost (Latanoprost) 0.005 % DROPS 1 Drop In the eye Every night Instructions: BOTH EYES Carbidopa/Levodopa (Carbidopa-Levodopa 25-100 Tab) 25 MG-100 MG TABLET 1 Tablet ORAL THREE TIMES DAILY Metoprolol Tartrate (Metoprolol Tartrate) 25 MG TABLET 0.5 Tablet ORAL TWICE DAILY Start taking the following new medications: Oxycodone HCl/Acetaminophen (Percocet 5-325 MG Tablet) 5 MG-325 MG TABLET 1 Tablet ORAL EVERY 4 HOURS NEEDED as needed for PAIN SCALE 7-10 (SEVERE) Qty = 18 No Refills Docusate Sodium (Docusate Sodium) 100 MG CAPSULE 100 Milligram ORAL TWICE DAILY as needed for constipation Days = 14 No Refills Polyethylene Glycol 3350 (Miralax) 17 GRAM/DOSE POWDER 17 Gram ORAL DAILY as needed for CONSTIPATION Days = 14 No Refills
[2016-09-30 14:27] VITALS: BP 130/70
[2016-09-30 15:23] VITALS: BP 130/70
== END 2016-09-30 16:40 | DRG 120 ==
LOC: DELPENDDIS → SDA 03:13 → CRI 03:13 → 2NB 03:13 → ENRESERV 18:08 → ENTRNSPT 18:56 → EDTRNSPTSTS 18:59 → CMPTRNSPT 19:17 → CRI 20:44 → 2NB 09-27 17:28 → ENPENDDIS 09-30 07:48 → 2NB 09-30 16:40
PROVIDERS: Physician Assistant; Physician Assistant Surgical; ADMIT Thoracic Surgery (Cardiothoracic Vascular Surgery)
PROC: 0BTG0ZZ Resection of Left Upper Lung Lobe, Open Approach (ICD-10-PCS; principal; 2016-09-25)
PROC: 07B70ZZ Excision of Thorax Lymphatic, Open Approach (ICD-10-PCS; principal; 2016-09-25)
DX: C34.12 Malignant neoplasm of upper lobe, left bronchus or lung (principal); G20 Parkinson's disease; I10 Essential (primary) hypertension; L30.9 Dermatitis, unspecified; E78.5 Hyperlipidemia, unspecified; Z85.828 Personal history of other malignant neoplasm of skin
CPT/HCPCS: 2NBSP; CCU; 36415; 82436; 87086; 93005; 93010; 97116-GO; 97161-GP; C9290; C9399; J0131; J1100; J1170; J1644; J2405; J3370; J7040; J7042

== ENCOUNTER → 2017-10-01 | Day surgery (SDC) | payer OTHER ==
[~2017-10-01] MED LIST changes: +DOCUSATE SODIU100 M3 PO; +HYDROXYZINE HCL25 M3 PO; +MIRALAX119 GM PO; +NON-ASPIRIN325 MG PO; +ONDANSETRON HCL8 MG PO; +OXYCODONE HCL5 M1 PO; +OXYCONTIN10 M1 PO; +PERCOCET 5-3251 EACH PO; +PROLENSA3 ML OS; +SENNA S TABLET1 EACH PO; +TRAVATAN Z5 ML OU; +TRIAMCINOLONE A15 G3 TOP; +ZYMAXID2.5 ML OS
--- NOTE | 2017-10-01 10:29 | Operative Report ---
Operative/Inv Procedure Report Surgery Date: 10/01/17 Name of Procedure: Cataract extraction with intraocular lens implantation left eye Pre-Operative Diagnosis: Age-related cataract left eye Post-Operative Diagnosis: Same Estimated Blood Loss: none Surgeon/Lubrication Supervisor: Adis KHAN,Billy Donovan Anesthesia: local monitored anesthesi Complications: None Operative/Procedure Note Note: Preoperatively the patient was noted to have 20/80 vision in the left eye . The risks, benefits, and alternatives to surgery were discussed at length with the patient. Informed consent was obtained. The patient was brought to the operating room where the left eye was prepped and draped in the normal sterile fashion. A speculum was placed on the left eye with good exposure. A stab incision was made using a paracentesis blade. Intracameral lidocaine was placed. Viscoelastic was used to form the anterior chamber. A clear corneal incision was made using keratome blade. A continuous curvilinear capsulorrhexis was made using a cystotome needle followed by Utrata forceps. There was no extension of the rhexis. Hydrodissection was performed using balanced salt solution. The cataract was removed using a stop and chop technique. Residual cortex was removed using coaxial irrigation and aspiration. The capsule was polished using irrigation and aspiration and the posterior capsule was cleaned using a balanced salt solution jet. There was no residual lens material inside the eye. The capsular bag was reformed using viscoelastic. An intraocular lens PCBOO of power 14.0 was verified and confirmed. It was loaded into an injector and injected into the eye. The lens was placed entirely within the capsular bag. Viscoelastic was evacuated using irrigation and aspiration. The wounds were stromally hydrated and the eye filled to physiologic pressure using balanced salt solution. Intracameral cefuroxime was placed. Speculum was removed and a shield was placed on the eye. The patient was brought to the recovery area without incident. Instructions were given to follow-up the next day for routine postoperative care.
== END ==
LOC: STS 02:21
DX: H25.9 Unspecified age-related cataract (principal); G20 Parkinson's disease; C34.90 Malignant neoplasm of unspecified part of unspecified bronchus or lung
CPT/HCPCS: J2250; V2632

== ENCOUNTER → 2017-10-29 | Day surgery (SDC) | payer OTHER ==
[~2017-10-29] VITALS: Ht 182.9 cm; Wt 72.6 kg
--- NOTE | 2017-10-29 08:32 | Operative Report ---
Operative/Inv Procedure Report Surgery Date: 10/29/17 Name of Procedure: Cataract extraction with intraocular lens implantation right eye Pre-Operative Diagnosis: Age-related cataract right eye Post-Operative Diagnosis: Same Estimated Blood Loss: none Surgeon/Senior Hr Generalist: Billy Arceo MD Anesthesia: local monitored anesthesi Complications: None Operative/Procedure Note Note: Preoperatively the patient was noted to have 20/60 vision in the right eye . The risks, benefits, and alternatives to surgery were discussed at length with the patient. Informed consent was obtained. The patient was brought to the operating room where the right eye was prepped and draped in the normal sterile fashion. A speculum was placed on the right eye with good exposure. The axis of the limbal relaxing incision was marked. Using a slim blade at 600 depth, an incision spanning 35 degrees was made without complication. A limbal relaxing incision of equal length and depth was made 180 away.A stab incision was made using a paracentesis blade. Intracameral lidocaine was placed. Viscoelastic was used to form the anterior chamber. A clear corneal incision was made using keratome blade. A continuous curvilinear capsulorrhexis was made using a cystotome needle followed by Utrata forceps. There was no extension of the rhexis. Hydrodissection was performed using balanced salt solution. The cataract was removed using a stop and chop technique. Residual cortex was removed using coaxial irrigation and aspiration. The capsule was polished using irrigation and aspiration and the posterior capsule was cleaned using a balanced salt solution jet. There was no residual lens material inside the eye. The capsular bag was reformed using viscoelastic. An intraocular lens PCBOO of power 14.5 was verified and confirmed. It was loaded into an injector and injected into the eye. The lens was placed entirely within the capsular bag. Viscoelastic was evacuated using irrigation and aspiration. The wounds were stromally hydrated and the eye filled to physiologic pressure using balanced salt solution. Intracameral cefuroxime was placed. Speculum was removed and a shield was placed on the eye. The patient was brought to the recovery area without incident. Instructions were given to follow-up the next day for routine postoperative care.
== END ==
LOC: STS 04:17
DX: H25.9 Unspecified age-related cataract (principal); G20 Parkinson's disease; C34.90 Malignant neoplasm of unspecified part of unspecified bronchus or lung
CPT/HCPCS: J2250; V2632